=== PATIENT | male | born 1965 | race Caucasian/White ===

== ENCOUNTER 2018-12-09 05:52 | Day surgery (SDC) | payer MEDICAID ==
[~2018-12-09] VITALS: Ht 167.6 cm; Wt 73.9 kg
[2018-12-09] MEDS ORDERED: fentaNYL 0.05 MG/ML VIAL ONE (07:33)
[2018-12-09] MEDS ORDERED: LIDOCAINE 2% 100 MG/5 ML UJET TP ONE (07:33)
[2018-12-09] MEDS ORDERED: fentaNYL 0.05 MG/ML VIAL IVP ONE (08:05)
== END 2018-12-09 08:45 | disposition home or self-care (01) ==
LOC: MDS 05:52 → MMU 06:04 → MDS 08:45
PROVIDERS: ATTEND Internal Medicine Gastroenterology
DX: Z12.11 Encounter for screening for malignant neoplasm of colon (principal); Z90.49 Acquired absence of other specified parts of digestive tract; Z79.84 Long term (current) use of oral hypoglycemic drugs; Z79.899 Other long term (current) drug therapy
CPT/HCPCS: 45378; J3010